=== PATIENT | male | born 1980 | race Caucasian/White ===

== ENCOUNTER 2018-12-01 00:52 | Emergency (ER) | payer SELFPAY ==
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
[2018-12-01 01:41] LABS: CHLORIDE,CL 107 mmol/L (98-107); SODIUM,NA 143 mmol/L (136-148)
[2018-12-01] MEDS: Iopamidol 755 MG/ML 500 ML Multipack Bottle IVPUSH ONE (01:51)
[2018-12-01] MEDS: Diphtheria,Pertussis(Acell),Tetanus Vaccine 0.5 ML Syringe IM ONE (02:00)
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
[2018-12-01] MEDS: Ibuprofen 800 MG Tab PO ONE (03:15)
== END 2018-12-01 03:16 ==
LOC: MW.ED 00:52
DX: F10.929 Alcohol use, unspecified with intoxication, unspecified (principal); S01.111A Laceration without foreign body of right eyelid and periocular area, initial encounter; M89.8X8 Other specified disorders of bone, other site; V59.9XXA Occupant (driver) (passenger) of pick-up truck or van injured in unspecified traffic accident, initial encounter
CPT/HCPCS: 36415; 70450; 71260; 72125; 74177; 80053; 80305; 81003; 84484; 85025; 85610; 86850; 86900; 86901; 99284; A9270; G0480; Q9967